=== PATIENT | female | born 1990 | race African-American/Black ===

== ENCOUNTER 2016-11-24 04:46 | Emergency (ER) | payer OTHER ==
--- NOTE | 2016-11-24 04:50 | PDOC ---
History of Present Illness - General History Source: Patient Exam Limitations: No Limitations - History of Present Illness Initial Comments: 11/24/16 05:17 The patient is a 25 year old female, with a significant past medical history of anemia and suicidal ideations, who presents to the emergency department complaining of non-radiating chest pain for 2 days. The patient describes the pain as chest tightness. She states she has been unable to sleep because of the pressure in her chest. She denies any associated diaphoresis or palpitations. The patient reports the pain is pleuritic and reproducible to palpation. She reports to episodes of nonbloody diarrhea yesterday, but denies any abdominal pain, nausea, vomiting, constipation, or changes in urination patterns. The patient reports she had an 22 days ago (with a pill), and is now SOB. The patient denies any fever, chills, cough, headache, or dizziness.The patient denies any recent travel or sick contacts. Allergies: Sulfa (Sulfonamide antibiotics) (hives), hydromorphone HCl (vomiting) Past Surgical History: None reported. 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 Non-smoker. Non drug user. <Daniella Garcia - Last Filed: 11/24/16 06:13> <Ashley Grossman - Last Filed: 11/26/16 00:54> - General Stated Complaint: CHEST PAIN Time Seen by Provider: 11/24/16 04:50 Past History <Daniella Garcia - Last Filed: 11/24/16 06:13> - Past Medical History Anemia: Yes Asthma: No Cancer: No Cardiac Disorders: No CVA: No COPD: No CHF: No Dementia: No Diabetes: No GI Disorders: No Disorders: No HTN: No Hypercholesterolemia: No Liver Disease: No Suicide Attempt (Hx): Yes Seizures: No Thyroid Disease: No - Surgical History Abdominal Surgery: No Appendectomy: No Cardiac Surgery: No Cholecystectomy: No Lung Surgery: No Neurologic Surgery: No Orthopedic Surgery: No - Immunization History Immunization Up to Date: Yes - Psycho/Social/Smoking Cessation Hx Anxiety: No Suicidal Ideation: No Smoking Status: No Smoking History: Never smoked Have you smoked in the past 12 months: No Number of Cigarettes Smoked Daily: 0 Hx Alcohol Use: Yes Drug/Substance Use Hx: No Substance Use Type: Alcohol Hx Substance Use Treatment: No <Ashley Grossman - Last Filed: 11/26/16 00:54> - Past Medical History Allergies/Adverse Reactions: Allergies Allergy/AdvReac Type Severity Reaction Status Date / Time Sulfa (Sulfonamide Allergy Severe Hives Verified 10/18/15 14:10 Antibiotics) hydromorphone HCl Allergy Vomiting Verified 10/18/15 14:10 [From Dilaudid] Home Medications: Ambulatory Orders Fluconazole [Diflucan -] 150 mg PO ONCE #3 tablet 11/24/16 Levofloxacin [Levaquin] 500 mg PO DAILY #7 tablet 11/24/16 Review of Systems - Review of Systems Able to Perform ROS?: Yes Comments:: 11/24/16 05:17 GENERAL/CONSTITUTIONAL: No fever or chills. No weakness. HEAD, EYES, EARS, NOSE AND THROAT: No change in vision. No ear pain or discharge. No sore throat. CARDIOVASCULAR: +Chest pain, +shortness of breath. RESPIRATORY: No cough, wheezing, or hemoptysis. GASTROINTESTINAL: +Diarrhea. No abdominal pain, nausea, vomiting, or constipation. GENITOURINARY: No dysuria, frequency, or change in urination. MUSCULOSKELETAL: No joint or muscle swelling or pain. No neck or back pain. SKIN: No rash NEUROLOGIC: No headache, vertigo, loss of consciousness, or change in strength/ sensation. ENDOCRINE: No increased thirst. No abnormal weight change. HEMATOLOGIC/LYMPHATIC: No anemia, easy bleeding, or history of blood clots. ALLERGIC/IMMUNOLOGIC: No hives or skin allergy. <Daniella Garcia - Last Filed: 11/24/16 06:13> *Physical Exam - Vital Signs Last Vital Signs Temp Pulse Resp BP Pulse Ox 98.1 F 73 17 127/82 100 11/24/16 04:59 11/24/16 04:59 11/24/16 04:59 11/24/16 04:59 11/24/16 04:59 - Physical Exam Comments: 11/24/16 05:18 GENERAL: Awake, alert, and fully oriented, in no acute distress HEAD: No signs of trauma EYES: PERRLA, EOMI, sclera anicteric, conjunctiva clear ENT: Auricles normal inspection, hearing grossly normal, nares patent, oropharynx clear without exudates. Moist mucosa NECK: Normal ROM, supple, no lymphadenopathy, JVD, or masses LUNGS: Breath sounds equal, clear to auscultation bilaterally. No wheezes, and no crackles. HEART: Regular rate and rhythm, normal S1 and S2, no murmurs, rubs or gallops. + Chest pain is reproducible to palpation of the midsternal region. ABDOMEN: Soft, nontender, normoactive bowel sounds. No guarding, no rebound. No masses EXTREMITIES: Normal range of motion, no edema. No clubbing or cyanosis. No cords, erythema, or tenderness NEUROLOGICAL: Cranial nerves II through XII grossly intact. Normal speech, normal gait SKIN: Warm, Dry, normal turgor, no rashes or lesions noted. <Daniella Garcia - Last Filed: 11/24/16 06:13> Heart Score/ECG Review - ECG Impressions Comment:: 11/24/16 06:13 Vent. Rate: 80 bpm IMPRESSION: Sinus rhythm with marked sinus arrhythmia. <Daniella Garcia - Last Filed: 11/24/16 06:13> - ECG Intrepretation Rhythm: Regular Rhythm - Arminto Arminto: Normal - P and WA Prominent R with upright T in V1 (true posterior KS): No Delta Wave(s) Present: No WPW: No - QRS Poor R Wave Progression: No Q Wave Present: No - ST and T Early Repolarization: No Non Specific ST-T Wave changes: No - ECG Impressions Normal ECG: Yes Non-specific ST Elevation: No Ischemic Changes: No Comment:: 11/24/16 07:25 Normal EKG; sinus arrhythmia; rate 80 bpm <Ashley Grossman - Last Filed: 11/26/16 00:54> ED Treatment Course - LABORATORY CBC & Chemistry Diagram: 11/24/16 07:38 11/24/16 07:38 <Ashley rGossman - Last Filed: 11/26/16 00:54> Medical Decision Making - Medical Decision Making 11/24/16 05:57 Pt states that she had an (with a pill) 22 days ago and she now has SOB and she is worried that it may be something bad. She has 100% O2 sat on room air and she has a normal EKG, and she has a normal BP and she has a normal Heart rate. SHe has no SOB on exam and her lung sounds are equal and good throughout. SHe has no leg swelling or edema; she is not a smoker She is taking lo-estrin control. She has no fever or chills. SHe has a normal exam. We are awaiting labs and a CXR 11/24/16 07:13 CBC and chem and flu culture are pending. CXR official result is pending. 11/24/16 07:23 Day Er doc will follow results and discharge patient. <Ashley Grossman - Last Filed: 11/26/16 00:54> *DC/Admit/Observation/Transfer - Attestations Scribe Attestion: 11/24/16 05:19 Documentation prepared by Daniella Garcia, acting as certified court/medical interpreter for Ashley Grossman MD. <Daniella Garcia - Last Filed: 11/24/16 06:13> <Ashley Grossman - Last Filed: 11/26/16 00:54> Diagnosis at time of Disposition: Pneumonia, Precordial pain - Discharge Dispostion Disposition: HOME Condition at time of disposition: Stable - Prescriptions Prescriptions: Fluconazole [Diflucan -] 150 mg PO ONCE #3 tablet Levofloxacin [Levaquin] 500 mg PO DAILY #7 tablet - Patient Instructions Printed Discharge Instructions: DI for Atypical Chest Pain Additional Instructions: You're being treated for pneumonia with Levaquin 500 mg take 1 tablet daily for 7 days. You have been given your first dose in the emergency department today so start your antibiotics tomorrow. Please follow-up with your primary care physician within one week and return to the emergency department if your symptoms persist, worsen, or new symptoms arise.
[2016-11-24 05:03] VITALS: BMI 38.4
[2016-11-24] MEDS ORDERED: IBUPROFEN 600 MG TABLET (FP) PO ONE ×2 (07:37)
--- NOTE | 2016-11-24 07:52 | PDOC ---
*Physical Exam - Vital Signs Last Vital Signs Temp Pulse Resp BP Pulse Ox 98.1 F 73 17 127/82 100 11/24/16 04:59 11/24/16 04:59 11/24/16 04:59 11/24/16 04:59 11/24/16 04:59 ED Treatment Course - LABORATORY CBC & Chemistry Diagram: 11/24/16 07:38 11/24/16 07:38 - Medications Given in the ED: ED Medications Discontinued Medications Generic Name Dose Route Start Last Admin Trade Name Emerson PRN Reason Stop Dose Admin Ibuprofen 600 mg 11/24/16 07:37 11/24/16 07:50 Motrin - PO 11/24/16 07:38 600 mg ONCE ONE Administration Progress Note - Progress Note Progress Note: The patient was endorsed to me at [address] Grant pending labs and reevaluation. The patient is a 25-year-old female status post chemical 3 weeks ago who presents to the emergency department with three-day history of intermittent left-sided chest pain described as pressure worse with inspiration. The patient complains also of shortness of breath. Upon my reevaluation the patient started to have left-sided jaw pain as well. Initial EKG was unremarkable. Her lungs are clear to auscultation bilaterally. Rental diagnosis includes but is not limited to: PE, ACS (unlikely given her age and lack of cardiac risk factors but will still rule out), pneumonia, musculoskeletal pain. I will repeat the EKG and check a d-dimer. If the d-dimer is positive will get a CT chest. Will continue to observe and reevaluate. Addendum: The d-dimer was elevated therefore a CT scan of the chest was performed. The CT scan showed no evidence of pulmonary embolism; however, there was a small lingular infiltrate and a very small left basilar filtrate. I will begin the patient on Levaquin as her influenza PCR was negative for influenza A and B. The patient is feeling improved and wants to go home. I will give her her first dose of Levaquin here in the emergency department and give a prescription for Levaquin 500 milligrams by mouth daily 7 days. I will instruct the patient to follow-up with her primary care physician within one week and to return to the emergency department if her symptoms persist, worsen, or new symptoms arise. *DC/Admit/Observation/Transfer Diagnosis at time of Disposition: Pneumonia, Precordial pain - Discharge Dispostion Disposition: HOME Condition at time of disposition: Stable Admit: No - Prescriptions Prescriptions: Levofloxacin [Levaquin] 500 mg PO DAILY #7 tablet - Patient Instructions Printed Discharge Instructions: DI for Atypical Chest Pain Additional Instructions: You're being treated for pneumonia with Levaquin 500 mg take 1 tablet daily for 7 days. You have been given your first dose in the emergency department today so start your antibiotics tomorrow. Please follow-up with your primary care physician within one week and return to the emergency department if your symptoms persist, worsen, or new symptoms arise.
[2016-11-24 07:54] LABS: BASOPHIL 0.2 % (0-2.0); EOSINOPHIL 1.3 % (0-4.5); MCH 24.9 pg (25.7-33.7); MCHC 31.7 g/dl (32.0-36.0); MEAN CELL VOLUME 78.6 fl (80-96); MEAN PLT VOLUME 7.2 fl (7.5-11.1); NEUTROPHILS 69.4 % (42.8-82.8); PLATELET COUNT 328 K/MM3 (134-434); RDW 13.7 % (11.6-15.6); WHITE BLOOD COUNT 12.6 K/mm3 (4.0-10.0)
[2016-11-24 08:18] LABS: ALBUMIN 3.4 g/dl (3.4-5.0); ANION GAP 9 (8-16); BILIRUBIN,TOTAL 0.6 mg/dL (0.2-1.0); CALCIUM 8.6 mg/dL (8.5-10.1); CO2 26 mmol/L (21-32); CREATININE 0.8 mg/dL (0.55-1.02); GLUCOSE,RANDOM 90 mg/dL (74-106); SGOT/AST 9 U/L (15-37); SGPT/ALT 26 U/L (12-78); TOT PROT 7.4 g/dl (6.4-8.2)
[2016-11-24 08:19] LABS: ALK PHOS 88 U/L (45-117)
[2016-11-24 09:19] LABS: TROPONIN I < 0.02 ng/ml (0.00-0.05)
--- NOTE | 2016-11-24 09:25 | EKG ---
Test Reason : Blood Pressure : / mmHG Vent. Rate : 080 BPM Atrial Rate : 080 BPM P-R Int : 158 ms QRS Dur : 086 ms QT Int : 372 ms P-R-T Axes : 032 028 024 degrees QTc Int : 429 ms SINUS RHYTHM WITH MARKED SINUS ARRHYTHMIA OTHERWISE NORMAL ECG WHEN COMPARED WITH ECG OF 03-OCT-2013 01:47, NONSPECIFIC T WAVE ABNORMALITY NOW EVIDENT IN INFERIOR LEADS NONSPECIFIC T WAVE ABNORMALITY NOW EVIDENT IN ANTERIOR LEADS Confirmed by VENUS SEGURA MD ([id number]) on 11/24/2016 9:25:07 AM Referred By: Confirmed By:VENUS SEGUAR MD
[2016-11-24] MEDS ORDERED: LEVOFLOXACIN 500 MG TABLET (FP) PO SCH (13:00)
[2016-11-24] MEDS ORDERED: LEVOFLOXACIN 250 MG TABLET (FP) ONE (13:26)
[2016-11-24 14:09] LABS: TROPONIN I < 0.02 ng/ml (0.00-0.05)
[2016-11-24 14:57] VITALS: BP 108/73; PULSE 78; TEMP 97.8
--- NOTE | 2016-11-25 09:40 | EKG ---
Test Reason : Blood Pressure : / mmHG Vent. Rate : 066 BPM Atrial Rate : 066 BPM P-R Int : 156 ms QRS Dur : 080 ms QT Int : 408 ms P-R-T Axes : 028 034 035 degrees QTc Int : 427 ms SINUS RHYTHM WITH MARKED SINUS ARRHYTHMIA WHEN COMPARED WITH ECG OF 24-NOV-2016 04:54, NO SIGNIFICANT CHANGE WAS FOUND Confirmed by VENUS SEGURA MD ([id number]) on 11/25/2016 9:40:16 AM Referred By: Confirmed By:VENUS SEGURA MD
== END 2016-11-24 14:58 | disposition home or self-care (01) ==
LOC: JER 04:46
DX: J18.9 Pneumonia, unspecified organism (principal); R07.2 Precordial pain
CPT/HCPCS: 36415; 71020-TC; 71275-TC; 80053; 82550; 82553; 84484; 84703; 85025; 85379; 87804; 93005; 93010; 99285-25

== ENCOUNTER 2018-10-12 19:26 | Emergency (ER) | payer OTHER ==
[2018-10-12 19:56] VITALS: BP 136/76; PULSE 85; TEMP 98.5; BMI 40.4
--- NOTE | 2018-10-12 20:08 | PDOC ---
History of Present Illness - General Chief Complaint: Psychiatric Stated Complaint: SHORTNESS OF BREATH, ANXIETY Time Seen by Provider: 10/12/18 19:59 History Source: Patient Exam Limitations: No Limitations - History of Present Illness Initial Comments: CHIEF COMPLAINT: 27 y/o female here after an episode of troubled breathing. HISTORY OF PRESENT ILLNESS: The patient's states she was getting really flustered at home and then became really warm. When she couldn't get off her tight clothing she began breathing really fast and then started hyperventilating. EMS was able to get her to slow her breathing and the symptoms resolved. He states this has happened to her in the past and she gets overwhelmed easily. She was also recently diagnosed with MS and hasn't started any medication yet. She denies LOC, head trauma, f/c, n/v/d, cough, hemoptysis , CP, abd pain. Vital signs on arrival are within normal limits. REVIEW OF SYSTEMS: GENERAL/CONSTITUTIONAL: No fever/chills. No weakness. No weight change. HEAD, EYES, EARS, NOSE AND THROAT: No change in vision. No ear pain or discharge. No sore throat. CARDIOVASCULAR: +SOB - resolved. No chest pain. RESPIRATORY: No cough, wheezing, or hemoptysis. GASTROINTESTINAL: No abd pain, nausea, vomiting, diarrhea. GENITOURINARY: No dysuria, frequency, or change in urination. MUSCULOSKELETAL: No joint or muscle swelling or pain. No neck or back pain. SKIN: No rash or easy bruising. NEUROLOGIC: No headache, vertigo, loss of consciousness, or loss of sensation. PSYCHIATRIC: No depression or anxiety. PHYSICAL EXAM: GENERAL: The patient is awake, alert, and fully oriented, in no acute distress. HEAD: Normal with no signs of trauma. ENT: Pupils equal, round and reactive to light, extraocular movements intact, sclera anicteric, conjunctiva clear. Neck supple. LUNGS: Clear to auscultation bilaterally. Normal excursion. No respiratory distress or use of accessory muscles. CV: RRR, S1/S2, no MRG. Cap refill < 2 sec. ABDOMEN: Soft, non-distended, non-tender even to deep palpation, no hepatomegaly or splenomegaly, no masses. EXTREMITIES: Normal range of motion, no edema. NEUROLOGICAL: Normal speech, normal gait. CN II-XII grossly intact. PSYCH: Normal mood, normal affect. SKIN: Warm, dry, normal turgor, no rashes or lesions noted. Past History - Past Medical History Allergies/Adverse Reactions: Allergies Allergy/AdvReac Type Severity Reaction Status Date / Time Sulfa (Sulfonamide Allergy Severe Hives Verified 10/12/18 19:56 Antibiotics) hydromorphone HCl Allergy Vomiting Verified 10/12/18 19:56 [From Dilaudid] Home Medications: Ambulatory Orders NK [No Known Home Medication] 10/12/18 Anemia: Yes Asthma: No Cancer: No Cardiac Disorders: No CVA: No COPD: No CHF: No Dementia: No Diabetes: No GI Disorders: No Disorders: No HTN: No Hypercholesterolemia: No Liver Disease: No Seizures: No Thyroid Disease: No - Surgical History Abdominal Surgery: No Appendectomy: No Cardiac Surgery: No Cholecystectomy: No GI Surgery: Yes (LEAP) Lung Surgery: No Neurologic Surgery: No Orthopedic Surgery: No - Immunization History Immunization Up to Date: Yes - Suicide/Smoking/Psychosocial Hx Smoking Status: No Smoking History: Never smoked Have you smoked in the past 12 months: No Number of Cigarettes Smoked Daily: 0 Information on smoking cessation initiated: No Hx Alcohol Use: No Drug/Substance Use Hx: No Substance Use Type: Alcohol Hx Substance Use Treatment: No *Physical Exam - Vital Signs Last Vital Signs Temp Pulse Resp BP Pulse Ox 98.5 F 85 18 136/76 99 10/12/18 19:52 10/12/18 19:52 10/12/18 19:52 10/12/18 19:52 10/12/18 19:52 Moderate Sedation - Procedure Monitoring Vital Signs: Procedure Monitoring Vital Signs Temperature 98.5 F 10/12/18 19:52 Pulse Rate 85 10/12/18 19:52 Respiratory Rate 18 10/12/18 19:52 Blood Pressure 136/76 10/12/18 19:52 O2 Sat by Pulse Oximetry (%) 99 10/12/18 19:52 Medical Decision Making - Medical Decision Making A/P: 27 y/o female with an episode of hyperventilating at home secondary to anxiety. The patient states her symptoms are completely resolved. Suggested benadryl and the patient states she will take at home. The patient verbalizes understanding of all instructions, has no further questions and is awaiting discharge. *DC/Admit/Observation/Transfer Diagnosis at time of Disposition: Anxiety hyperventilation - Discharge Dispostion Disposition: HOME Condition at time of disposition: Improved - Referrals - Patient Instructions Printed Discharge Instructions: DI for Anxiety -- Adult, DI for Hyperventilation Additional Instructions: Discharge Instructions: -If symptoms recur, try to take slow deep breaths -You can take benadryl if you start to feel overwhelmed -Please follow up with your doctor tomorrow -Return to the ER with any worsening or concerning symptoms - Post Discharge Activity
== END 2018-10-12 20:38 | disposition home or self-care (01) ==
LOC: JERFT 19:26
DX: R06.4 Hyperventilation (principal); F41.9 Anxiety disorder, unspecified; D64.9 Anemia, unspecified
CPT/HCPCS: 99281-25

== ENCOUNTER 2020-07-19 07:00 | Inpatient (IN) | payer OTHER ==
--- OUTSIDE RECORDS SUMMARY | 2020-07-19 07:30 | XMS ---
:1990 Author Organization [facility] Support Name Relationship Address Phone [facility] Unavailable [address] [place] [address] FRAN PEACE [address] [place] [address] CES[employer] MOTHER [address] [phone] [place] [address] Re-disclosure Warning The records that you are about to access may contain information from federally- assisted alcohol or drug abuse programs. If such information is present, then the following federally mandated warning applies: This information has been disclosed to you from records protected by federal confidentiality rules (42 CFR part 2). The federal rules prohibit you from making any further disclosure of this information unless further disclosure is expressly permitted by the written consent of the person to whom it pertains or as otherwise permitted by 42 CFR part 2. A general authorization for the release of medical or other information is NOT sufficient for this purpose. The Federal rules restrict any use of the information to criminally investigate or prosecute any alcohol or drug abuse patient.The records that you are about to access may contain highly sensitive health information, the redisclosure of which is protected by Article 27-F of the [facility] Public Health law. If you continue you may haveaccess to information: Regarding HIV / AIDS; Provided by facilities licensed or operated by the [facility] Office of Mental Health; or Provided by the [facility] Office for People With Developmental Disabilities. If such information is present, then the following [facility] mandated warning applies: This information has been disclosed to you from confidential records which are protected by state law. State law prohibits you from making any further disclosure of this information without the specific written consent of the person to whom it pertains, or as otherwise permitted by law. Any unauthorized further disclosure in violation of state law may result in a fine or longterm sentence or both. A general authorization for the release of medical or other information is NOT sufficient authorization for further disclosure. Insurance Providers Payer name Policy type Policy ID Covered Covered constitution party's Policy P brittni / Coverage constitution party ID relationship to [employer] ormation type su[employer] [facility] [id number] - [id number] [facility] [id number]
[2020-07-19] MEDS ORDERED: DEXTROSE 5%-LACTATED RINGERS 1,000 ML IV SCH (09:00)
--- NOTE | 2020-07-19 09:04 | HP ---
Past Medical History - Primary Care Physician PCP:: Brian Mo - Admission Chief Complaint: 29yo P0 with at EGA 40w2d admitted for labor indx. History of Present Illness: complicated by: Post term at EGA 40w2d Morbid obesity Maternal MS Depression/anxiety Rheumatoid arthritis History Source: Patient, Medical Record Limitations to Obtaining History: No Limitations - Past Medical History OPERATIONS TRAINER: Yes: Multiple Sclerosis Cardiovascular: No: AFIB, Aneurysm, Aortic Insufficiency, Aortic Stenosis, CAD, CHF, Deep Vein Thrombosis, HTN, Hyperlipdemia, NE, Mitral Insufficiency, Mitral Stenosis, Murmur, Pulmonary Hypertension, Other Pulmonary: No: Asthma, Bronchitis, Cancer, COPD, O2 Dependent, Pneumonia, Previously Intubated, Pulmonary Embolus, Pulmonary Fibrosis, Sleep Apnea, Other Hepatobiliary: No: Cirrhosis, Cholelithiasis, Cholecystitis, Choledocholithias is, Hepatitis A, Hepatitis B, Hepatitis C, Other Renal/: No: Renal Failure, Renal Inusuff, BPH, Cancer, Hematuria, Hemodialysis, Neurogenic Bladder, Renal Calculi, UTI, Other Reproductive: Yes: Fibroids ...: 3 ...Para: 0 ...Term: 0 ...: 0 ...Spon : 1 ...Induced : 1 ...Living Children: 0 ...Multiple Gestation: 0 ... Weeks Gestation by Dates: 40.2 Heme/Onc: No: Anemia, B12 Deficiency, Bleeding Disorder, Cancer, Current Chemotherapy, Current Radiation Therapy, Hemochromatosis, Hypercoaguable State, Myeloproliferative Synd, Sickle Cell Disease, Sickle Cell Trait, Thrombocytopenia, Other Infectious Disease: No: AIDS, C-Diff, Herpes Zoster, HIV, MRSA, STD's, Tuberculosis, VREF, Other Psych: Yes: Anxiety, Depression Musculoskeletal: No: Bursitis, Chronic low back pain, Hemiparesis, Hemiplegia, Osteoarthritis, Paraplegia, Other Rheumatology: No: Fibromyalgia, Gout, Lupus, Rheumatoid Arthritis, Sarcoidosis, Vasculitis, Other ENT: No: Allergic Rhinitis, Sinusitis, Other Endocrine: No: Selwyn's Disease, Kumar's Disease, Diabetes Insipidus, Diabetes Mellitus, Hyperparathyroidism, Hyperthyroidism, Hypothyroidism, Osteopenia, SIADH, Other Dermatology: No: Basal Cell, Cellulitis, Eczema, Melanoma, Psoriasis, Squamous Cell, Other - Past Surgical History Hx Myomectomy: No Hx Transabdominal Cerclage: No Additional Surgical History: Rigt oophorectomy, LEEP - Smoking History Smoking history: Never smoked Have you smoked in the past 12 months: No Aproximately how many cigarettes per day: 0 - Alcohol/Substance Use Hx Alcohol Use: No History of Substance Use: reports: None - Social History Usual Living Arrangement: Yes: With Spouse Do you think of yourself as: Straight/Heterosexual ADL: Independent History of Recent Travel: No Home Medications - Allergies Allergies/Adverse Reactions: Allergies Allergy/AdvReac Type Severity Reaction Status Date / Time Sulfa (Sulfonamide Allergy Severe Hives Verified 07/19/20 07:57 Antibiotics) hydromorphone HCl Allergy Rash Verified 07/19/20 07:57 [From Dilaudid] - Home Medications Home Medications: Ambulatory Orders No122/Iron/Folic Acid [ Multi Tablet] 1 each PO DAILY 07/19/20 Family Medical History Family Hx Diabetes: Grandmother (paternal), Grandfather (maternal), Father Review of Systems - Review of Systems Constitutional: reports: No Symptoms Eyes: reports: No Symptoms HENT: reports: No Symptoms Neck: reports: No Symptoms Cardiovascular: reports: No Symptoms Respiratory: reports: No Symptoms Gastrointestinal: reports: No Symptoms Genitourinary: reports: No Symptoms Breasts: reports: No Symptoms Reported Musculoskeletal: reports: No Symptoms Integumentary: reports: No Symptoms Neurological: reports: No Symptoms Endocrine: reports: No Symptoms Hematology/Lymphatic: reports: No Symptoms Psychiatric: reports: No Symptoms Pain Intensity: 0 Physical Exam - Maternity Vital Signs: Vital Signs Temperature 97.8 F 07/19/20 07:38 Pulse Rate 87 07/19/20 07:38 Respiratory Rate 18 07/19/20 07:38 Blood Pressure 119/72 07/19/20 07:38 O2 Sat by Pulse Oximetry (%) 97 07/19/20 07:38 Constitutional: Yes: Well Nourished, No Distress, Calm Eyes: Yes: WNL, Conjunctiva Clear, EOM Intact HENT: Yes: WNL, Atraumatic, Normocephalic Neck: Yes: WNL, Supple, Trachea Midline Cardiovascular: Yes: WNL, Regular Rate and Rhythm Lungs: Clear to auscultation, Normal air movement Breast(s): Yes: WNL - Abdominal Exam/OB Fundal Height: 42 Number of Fetuses: Single Presentation: Vertex Contractions: No Monitor Mode: External Heart Rate (range): 140 Heart Rate Location: Midline Category: I Accelerations: Non-Uniform Decelerations: None - Vaginal Exam/OB Vaginal Bleeding: No Speculum Exam: No Dilatation (cm): 0 Effacement (%): 0 Amniotic Membrane Status: Intact Presentation: Vertex/Position Station: -4 - Physical Exam Musculoskeletal: Yes: WNL Extremities: Yes: WNL Edema: Yes Edema: LLE: Trace, RLE: Trace Integumentary: Yes: WNL Deep Tendon Reflex Grade: Normal +2 ...Motor Strength: WNL Psychiatric: Yes: WNL, Alert, Oriented Hemorrhage Risk Assessment - Risk Factors Medium Risk Factors: Yes: Obesity (BMI >40) High Risk Factors: Yes: None Risk Score: 1 Risk Level: Medium Risk Imaging - Results Ultrasound: Report Reviewed Assessment/Plan 29yo P0 with at EGA 40w2d admitted for labor indx. Pt is not in labor. Pt is not in labor. Fetus with Category I tracing. Adequate gynecoid pelvimetry on exam. We had long discussion re: risks, benefits, and alternatives of labor induction. I explained the options of expectant management awaiting spontaneous labor, induction of labor, and elective section. The risks of uterine tachysystole, distress, uterine rupture, need for emergency C/S, hemorrhage, infection, scarring, etc. were discussed. We also discussed the risks of meconium aspiration, shoulder dystocia, and anesthesia options. The pt requested to proceed with induction. We discussed the alternative methods of induction with Cervidil, Cytotec, Folley ballon, and pitocin. The pt prefers Cervidil followed by pitocin, if needed.
[2020-07-19] MEDS ORDERED: DINOPROSTONE 10 MG VAGINAL SUPPOSITORY VG ONE (09:15)
[2020-07-19 09:36] LABS: BASO % 0.6 % (0-2.0); EOS % 0.6 % (0-4.5); HEMATOCRIT 36.1 % (32.4-45.2); HEMOGLOBIN 11.3 GM/dL (10.7-15.3); LYMPH % 20.4 % (8-40); MCH 24.3 pg (25.7-33.7); MCHC 31.4 g/dl (32.0-36.0); MEAN CELL VOLUME 77.5 fl (80-96); MEAN PLT VOLUME 7.2 fl (7.5-11.1); MONO % 8.1 % (3.8-10.2); NEUT % 70.3 % (42.8-82.8); PLATELET COUNT 334 K/MM3 (134-434); RBC 4.66 M/mm3 (3.60-5.2); WHITE BLOOD COUNT 12.1 K/mm3 (4.0-10.0)
[2020-07-19 09:44] LABS: INR 0.95 (0.83-1.09); PROTHROMBIN TIME (PATIENT) 11.2 SEC (9.7-13.0)
[2020-07-19 09:47] LABS: ACTIVATED PTT 23.6 SECONDS (25.2-36.5)
[2020-07-19 10:06] LABS: BLOOD UREA NITROGEN 7.8 mg/dL (7-18); CALCIUM 8.4 mg/dL (8.5-10.1); CREATININE 0.6 mg/dL (0.55-1.3); POTASSIUM 3.6 mmol/L (3.5-5.1)
[2020-07-19 10:21] VITALS: BMI 43.5
--- NOTE | 2020-07-19 21:59 | PN ---
Ante-Partal Exam - Subjective Subjective: Cervidil was removed at 9pm and VE was done. Vital Signs: Vital Signs Temperature 97.6 F 07/19/20 16:00 Pulse Rate 98 H 07/19/20 19:00 Respiratory Rate 18 07/19/20 19:00 Blood Pressure 107/56 L 07/19/20 19:00 O2 Sat by Pulse Oximetry (%) 99 07/19/20 13:00 Bleeding: No Headache: No Visual changes: No Right upper quadrant pain: No Pain (scale 1-10): 4 - Contractions Contractions: Yes Regularity: Irregular Intensity: Mild Monitor Mode: External - Exam during Labor Heart Rate: 140 Variability: Moderate Heart Rate Location: Midline Category: I Monitor Accelerations: Present Monitor Decelerations: None Exam: Vaginal Dilatation (cm): 0 Effacement (%): 0 Amniotic Membrane Status: Intact Presentation: Vertex Station: -4 Remarks: Gynecoid pelvimetry. No cervical change after cervidil. - Intrapartum Hemorrhage Risk Medium Risk Factors: None High Risk Factors: None Risk Score: 0 Risk Level: Low Risk - Assessment/Plan Assessment/Plan: P0 with at 40w2d admitted for labor indx. Pt is now s/p Cervidil. No cervical change. Plan trial of pitocin infusion. Risks and benefits of pitocin and labor indx were reviewed.
--- NOTE | 2020-07-19 23:29 | PN ---
Ante-Partal Exam - Subjective Subjective: No complaints Vital Signs: Vital Signs Temperature 98.2 F 07/19/20 22:00 Pulse Rate 81 07/19/20 22:00 Respiratory Rate 18 07/19/20 22:00 Blood Pressure 100/68 07/19/20 22:00 O2 Sat by Pulse Oximetry (%) 99 07/19/20 13:00 Bleeding: No Headache: No Visual changes: No Right upper quadrant pain: No Pain (scale 1-10): 1 - Contractions Contractions: Yes Regularity: Irregular Intensity: Mild Monitor Mode: External - Exam during Labor Heart Rate: 140 Variability: Moderate Heart Rate Location: Midline Category: I Monitor Accelerations: Present Monitor Decelerations: None Presentation: Vertex - Intrapartum Hemorrhage Risk Medium Risk Factors: None High Risk Factors: None Risk Score: 0 Risk Level: Low Risk - Assessment/Plan Assessment/Plan: Not in labor Fetus with Category I tracing Start pitocin
[2020-07-19] MEDS ORDERED: OXYTOCIN 30 UNITS in 0.9% NS 30 UNIT/500 ML INFUS.BAG IVPB SCH (23:30)
[2020-07-20] MEDS ORDERED: BUTORPHANOL TARTRATE 2 MG/ML VIAL ONE (04:26)
[2020-07-20] MEDS ORDERED: PROMETHAZINE HCL 25 MG/1 ML VIAL ONE (04:27)
[2020-07-20] MEDS ORDERED: BUTORPHANOL TARTRATE 1 MG/ML VIAL IVPB ONE (06:00)
[2020-07-20] MEDS ORDERED: BUTORPHANOL TARTRATE 2 MG/ML VIAL IVPB ONE (06:00)
[2020-07-20] MEDS ORDERED: PROMETHAZINE HCL 25 MG/1 ML VIAL IVPB ONE (06:30)
--- NOTE | 2020-07-20 07:19 | PN ---
Ante-Partal Exam - Subjective Subjective: Pt with contractions. s/p SROM at 4:30am. She is on pitocin now. s/p Stadol/p henergan Vital Signs: Vital Signs Temperature 98.5 F 07/20/20 06:00 Pulse Rate 96 H 07/20/20 06:00 Respiratory Rate 07/20/20 06:00 Blood Pressure 127/72 07/20/20 06:00 O2 Sat by Pulse Oximetry (%) 99 07/19/20 13:00 Bleeding: No Headache: No Visual changes: No Right upper quadrant pain: No Pain (scale 1-10): 6 - Contractions Contractions: Yes Regularity: Regular Intensity: Mild/Mod Monitor Mode: External - Exam during Labor Heart Rate: 140 Variability: Moderate Heart Rate Location: Midline Category: I Monitor Accelerations: Present Monitor Decelerations: None Exam: Vaginal Amniotic Fluid: Clear - Intrapartum Hemorrhage Risk Medium Risk Factors: None High Risk Factors: None Risk Score: 0 Risk Level: Low Risk - Assessment/Plan Assessment/Plan: Postterm with labor induction Fetus with category I tracing Plan to continue labor indx
[2020-07-20 09:10] LABS: POC NITRAZINE POS
[2020-07-20] MEDS ORDERED: FENTANYL/BUPIVACAINE/NS/PF - PCEA - 50 ML DISP.SYRIN EP ONE ×2 (10:37→14:49)
[2020-07-20] MEDS ORDERED: BUPIVACAINE HCL/PF 0.25% (2.5MG/ML) 10 ML VIAL ONE (10:40)
[2020-07-20] MEDS: FENTANYL/BUPIVACAINE/NS/PF - PCEA - 50 ML DISP.SYRIN EP SCH (11:00)
[2020-07-20] MEDS ORDERED: NALOXONE HCL 0.4 MG/ML VIAL IVPUSH PRN (11:08)
[2020-07-20] MEDS ORDERED: PCA PUMP NR ONE (12:00)
--- NOTE | 2020-07-20 12:02 | PN ---
Ante-Partal Exam - Subjective Subjective: Patient reports pain with contractions Vital Signs: Vital Signs Temperature 98.0 F 07/20/20 09:00 Pulse Rate 87 07/20/20 09:00 Respiratory Rate 20 07/20/20 09:00 Blood Pressure 116/78 07/20/20 09:00 O2 Sat by Pulse Oximetry (%) 99 07/19/20 13:00 Bleeding: No Headache: No Visual changes: No Right upper quadrant pain: No - Contractions Contractions: Yes Regularity: Regular Intensity: Mod/Strong Monitor Mode: External - Exam during Labor Heart Rate: 130 Variability: Moderate Category: I Monitor Accelerations: Present Monitor Decelerations: None Exam: Vaginal Dilatation (cm): 3 Effacement (%): 90 Amniotic Membrane Status: Ruptured Station: -3 - Intrapartum Hemorrhage Risk Medium Risk Factors: None High Risk Factors: None Risk Score: 0 Risk Level: Low Risk - Assessment/Plan Assessment/Plan: 29 yo induction of labor 1. Good cervical change continue pitocin per protocol 2. GBS neg 3. Category I FHT 4. Desires epidural, anesthesia notified
--- NOTE | 2020-07-20 13:38 | PN ---
Ante-Partal Exam - Subjective Subjective: Patient comfortable s/p epidural Vital Signs: Vital Signs Temperature 98.2 F 07/20/20 12:15 Pulse Rate 70 07/20/20 12:30 Respiratory Rate 18 07/20/20 12:30 Blood Pressure 110/65 07/20/20 12:15 O2 Sat by Pulse Oximetry (%) 97 07/20/20 12:30 Bleeding: No Headache: No Visual changes: No Right upper quadrant pain: No - Contractions Contractions: Yes Regularity: Regular Intensity: Unaware Monitor Mode: External - Exam during Labor Heart Rate: 130 Variability: Moderate Category: I Monitor Accelerations: Present Monitor Decelerations: None Exam: Vaginal Dilatation (cm): 5 Effacement (%): 100 Amniotic Membrane Status: Ruptured Presentation: Vertex Station: -3 - Intrapartum Hemorrhage Risk Medium Risk Factors: None High Risk Factors: None Risk Score: 0 Risk Level: Low Risk - Assessment/Plan Assessment/Plan: 29 yo active labor 1. pain well controlled with epidural Will continue pitocin 2. GBS neg 3. Will continue expectant management
--- NOTE | 2020-07-20 15:21 | PN ---
Progress Note (short form) - Note Progress Note: Late entry note for 14:30 Called to patient bedside for recurrent variable decelerations to FHT 70s /80s, spontaneous recovery to baseline with moderate varibility. Pitocin shut off, patient given O2 via facemask. Cervix examined /-3 Patient placed on L lateral position FHT returned to baseline 140s md phylicia + accels, no additional decels Will pause pitocin for now Plan to restart if patient continues with category I FHT Will monitor
--- NOTE | 2020-07-20 16:35 | PN ---
Ante-Partal Exam - Subjective Vital Signs: Vital Signs Temperature 97.9 F 07/20/20 16:00 Pulse Rate 100 H 07/20/20 15:45 Respiratory Rate 18 07/20/20 15:45 Blood Pressure 88/52 L 07/20/20 15:15 O2 Sat by Pulse Oximetry (%) 100 07/20/20 15:45
--- NOTE | 2020-07-20 16:42 | PN ---
Ante-Partal Exam - Subjective Subjective: Patient comfortable s/p epidural Vital Signs: Vital Signs Temperature 97.9 F 07/20/20 16:00 Pulse Rate 100 H 07/20/20 15:45 Respiratory Rate 18 07/20/20 15:45 Blood Pressure 88/52 L 07/20/20 15:15 O2 Sat by Pulse Oximetry (%) 100 07/20/20 15:45 Bleeding: No Headache: No Visual changes: No Right upper quadrant pain: No - Contractions Contractions: Yes Regularity: Regular - Exam during Labor Heart Rate: 140 Variability: Moderate Category: I Monitor Accelerations: Present Monitor Decelerations: None Exam: Vaginal Dilatation (cm): 7 Effacement (%): 100 Amniotic Membrane Status: Ruptured Station: -3 - Intrapartum Hemorrhage Risk Medium Risk Factors: None High Risk Factors: None Risk Score: 0 Risk Level: Low Risk - Assessment/Plan Assessment/Plan: 29 yo active labor 1. Unchanged vaginal exam Discussed possibility of delivery Patient refuses at this time Will continue pitocin per protocol 2. GBS negative 3. Pain well controlled with epidural 4. Will reassess in 1 hour
[2020-07-20] MEDS ORDERED: LIDO 2%/EPI 1:200000 PRESRVFRE (20 ML SDVIAL) ONE (18:37)
[2020-07-20] MEDS ORDERED: PHENYLEPHRINE HCL 10 MG/1 ML SINGLE DOSE VIAL ONE (18:39)
[2020-07-20] MEDS ORDERED: ONDANSETRON 4 MG/2 ML VIAL IVPUSH PRN (19:58)
[2020-07-20] MEDS ORDERED: IBUPROFEN 600 MG TABLET (FP) PO PRN (19:58)
--- NOTE | 2020-07-20 20:19 | PN ---
Progress Note (short form) - Note Progress Note: Late entry Patient examined at 1745 - found to be unchanged exam - discussed failure to progress Discussed delivery with patient Discussed risks including but not limited to infection, bleeding requiring transfusion and damage to surrounding organs such as the bowel or bladder. Discussed risk of injury to . Discussed risk of wound infection and separation. Discussed need for planning of future children and possibility of abnormal placentation. All questions answered. Patient expressed understanding. Nursing and OR staff notified. Will proceed to OR
[2020-07-20] MEDS ORDERED: ceFAZolin SODIUM 1 GM VIAL ONE ×2 (20:31)
[2020-07-20] MEDS ORDERED: OXYTOCIN 10 UNITS/ML VIAL ONE ×4 (20:31)
[2020-07-20] MEDS ORDERED: SENNOSIDES/DOCUSATE COMBO (SENNA PLUS) TABLET (UD) PO PRN (20:35)
[2020-07-20] MEDS ORDERED: oxyCODONE HCL 5 MG TABLET PO PRN (20:35)
[2020-07-20] MEDS ORDERED: METHYLERGONOVINE MALEATE 0.2 MG/1 ML AMP IM PRN (20:35)
[2020-07-20] MEDS ORDERED: BENZOCAINE 28 GM HEMORRHOIDAL OINTMENT TP PRN (20:35)
[2020-07-20] MEDS ORDERED: WITCH HAZEL 50% (TUCKS) 40 PAD/JAR PAD TP PRN (20:35)
[2020-07-20] MEDS ORDERED: BENZOCAINE 20% 57 GM BOTTLE TP PRN (20:35)
--- NOTE | 2020-07-20 20:35 | PN ---
"Delivery - Delivery Section: Primary EBL (cc): 800 Delivery, Single - [place] Feeding Plan Initial Plan: Exclusive throughout hospitalization Remarks - Remarks Remarks: Surgeon: MD Mesfin | Assist: MD Chepe | Anesthesia: MD Jp EBL: 800 | UOP:500 | IVF 1300 Findings: female infant, ROT; 8,9; weight 6-7; 19 inches; absent right ovary, normal left ovary, normal tubes bilaterally Dictation: [id number]"
[2020-07-20] MEDS ORDERED: OXYTOCIN 20 UNITS in 0.9% NS 20 UNIT/1,000 ML INFUS.BAG IV SCH (20:45)
[2020-07-20] MEDS ORDERED: CITRIC ACID/SODIUM CITRATE 30 ML UNIT-DOSE CUP PO ONE (20:45)
[2020-07-20] MEDS ORDERED: OXYTOCIN 20 UNITS in 0.9% NS 20 UNIT/1,000 ML INFUS.BAG IV ONE (22:05)
[2020-07-20] MEDS: IBUPROFEN 800 MG/8 ML IJ IVPB PRN (22:26)
--- NOTE | 2020-07-21 00:06 | PN ---
Post Progress Note - Subjective Subjective: Patient without acute complaints. Tolerating clears, without nausea or vomiting No voiding, sifuentes in place draining clear fluid No ambulation or flatus yet. Denies fevers or chills. Pain well controlled. Baby at bedside, Type of Delivery: Primary C/S Vital Signs: Vital Signs Temperature 98.6 F 07/20/20 22:45 Pulse Rate 76 07/20/20 22:45 Respiratory Rate 18 07/20/20 22:45 Blood Pressure 103/70 07/20/20 22:45 O2 Sat by Pulse Oximetry (%) 98 07/20/20 22:45 Breast Exam: Yes: Soft Uterus: Yes: Fundus Firm, Fundus @ umbilicus Incision: Yes: Dressing dry and intact Abdomen/GI: Yes: Abdomen soft, Tender (incisional), Passing flatus, Tolerating PO. No: Abdominal Distention Lochia: Yes: Rubra Lochia, amount: Small Extremities: Yes: Calves non-tender, Edema (trace) - Labs Labs: CBC WBC 12.1 K/mm3 (4.0-10.0) H 07/19/20 09:30 RBC 4.66 M/mm3 (3.60-5.2) 07/19/20 09:30 Hgb 11.3 GM/dL (10.7-15.3) 07/19/20 09:30 Hct 36.1 % (32.4-45.2) 07/19/20 09:30 MCV 77.5 fl (80-96) L 07/19/20 09:30 MCH 24.3 pg (25.7-33.7) L 07/19/20 09:30 MCHC 31.4 g/dl (32.0-36.0) L 07/19/20 09:30 RDW 15.0 % (11.6-15.6) 07/19/20 09:30 Plt Count 334 K/MM3 (134-434) 07/19/20 09:30 MPV 7.2 fl (7.5-11.1) L 07/19/20 09:30 Absolute Neuts (auto) 8.5 K/mm3 (1.5-8.0) H 07/19/20 09:30 Neutrophils % 70.3 % (42.8-82.8) 07/19/20 09:30 Lymphocytes % 20.4 % (8-40) 07/19/20 09:30 Monocytes % 8.1 % (3.8-10.2) 07/19/20 09:30 Eosinophils % 0.6 % (0-4.5) 07/19/20 09:30 Basophils % 0.6 % (0-2.0) 07/19/20 09:30 Nucleated RBC % 0 % (0-0) 07/19/20 09:30 Assessment/Plan 29 yo POD # 1 s/p primary CD, afebrile, vital signs stable, doing well 1. Continue routine postoperative care. 2. AM CBC with mild anemia 3. Rh positive status, no rhogam indicated. 4. Encourage ambulation and incentive spirometer use 5. Continue oral pain medication 6. Anticipate discharge home postoperative day #3 or #4
[2020-07-21 07:51] LABS: BASO % 0.2 % (0-2.0); EOS % 0.4 % (0-4.5); HEMATOCRIT 29.2 % (32.4-45.2); LYMPH % 18.2 % (8-40); MCH 24.3 pg (25.7-33.7); MEAN CELL VOLUME 78.5 fl (80-96); MEAN PLT VOLUME 7.6 fl (7.5-11.1); MONO % 7.6 % (3.8-10.2); NEUT % 73.6 % (42.8-82.8); PLATELET COUNT 269 K/MM3 (134-434); RBC 3.72 M/mm3 (3.60-5.2); RDW 15.2 % (11.6-15.6)
[2020-07-21] MEDS: IBUPROFEN 800 MG/8 ML IJ IVPB PRN (08:06)
--- NOTE | 2020-07-21 08:34 | PN ---
Progress Note (short form) - Note Progress Note: Anesthesia postop note 29 y/o F s/p spinal anesthesia/duramorph for section POD#1, vss, aaox3, pain well controlled, sensory motor intact distally No anesthesia complications.
[2020-07-21] MEDS: PRENATAL VITAMINS W/ FOLIC ACID TABLET (FP) PO SCH (09:37)
[2020-07-21] MEDS: FENTANYL/BUPIVACAINE/NS/PF - PCEA - 50 ML DISP.SYRIN EP SCH (11:39)
--- NOTE | 2020-07-21 16:50 | OP ---
DATE OF OPERATION: 07/20/2020 PREOPERATIVE DIAGNOSIS: Failure to progress, failed induction of labor . POSTOPERATIVE DIAGNOSIS: Failure to progress, failed induction of labor . SURGEON: Tonie Toure MD. SSIS SSRS DEVELOPER: Brian Mo MD. ANESTHESIOLOGIST: Ricardo Trammell MD. ESTIMATED BLOOD LOSS: 800. URINE OUTPUT: 500. INTRAVENOUS FLUIDS GIVEN: 1300. FINDINGS: Female infant ROT position, Apgars 8 and 9. Weight 6 pounds 7 ounces, 19 inches. Absent right ovary, normal left ovary . Normal tubes bilaterally. INDICATION: Patient is a 29-year-old who was admitted for induction of labor. She progressed to 7 cm dilated and did not progress . After approximately 3 hours at the same exam, she was counseled regarding delivery. The risks, benefits, alternatives, and complications to procedure including infection, bleeding, damage to surrounding organs, risk of wound infection and separation, risk of hemorrhage requiring blood transfusion. Also reviewed risk of abnormal placentation in future . She expressed understanding, was brought to the operating room. DESCRIPTION OF PROCEDURE: The patient was prepped and draped in the normal sterile fashion, placed in dorsal supine position with a leftward tilt. Approximately 11-cm skin incision was made with the knife and carried down to the underlying rectus fascia using Bovie electrocautery. Fascia was nicked in the midline, extended laterally using Cohn scissors. Inferior portion of the fascial incision was tented up using Garry clamps, dissected off the underlying rectus muscle using Cohn scissors. The superior portion of the facial incision was tented up using Garry clamps, dissected off the underlying rectus muscle using Cohn scissors. Diastasis recti was noted. The peritoneum was entered sharply. Vesicouterine peritoneum was identified. A large vessel was noted midline at the lower uterine segment. This was isolated and clamped using 2-0 plain gut. The uterine incision was made with a knife and extended laterally using bandage scissors. The infant's head was found to be in ROT position and delivered followed by shoulders and body without difficulty. Cord was clamped and cut. Baby was handed to waiting NICU staff. The placenta was delivered. The uterus was cleared of all clots and debris. The uterus was closed using 0 Biosyn in running layers, 2nd layer was imbricated layer. The vesicouterine peritoneum was reapproximated using 0 Biosyn in a running layer. Gutters were cleared of all clots and debris. Normal bilateral fallopian tubes were noted. Absent right ovary, normal appearance left ovary. The peritoneum was then closed using 2-0 Biosyn in running fashion The rectus muscles were reapproximated using 0 Biosyn in an interrupted fashion. The fascia was closed using 0 Vicryl in running fashion. Subcutaneous fat was closed using 2-0 plain gut in a running fashion. Skin was reapproximated using 4-0 Monocryl. Patient tolerated procedure well. Estimated blood loss was 300 mL. Patient was brought to recovery room in stable condition. Mandi [id number] MTDD
[2020-07-21] MEDS: ACETAMINOPHEN 325 MG TABLET (FP) PO PRN (18:12)
[2020-07-21] MEDS: SIMETHICONE 80 MG TAB.CHEW (FP) PO PRN (18:12)
[2020-07-21] MEDS: IBUPROFEN 600 MG TABLET (FP) PO PRN (18:12)
[2020-07-21] MEDS ORDERED: BISACODYL 10 MG SUPP.RECT RC PRN (20:35)
[2020-07-22] MEDS: SIMETHICONE 80 MG TAB.CHEW (FP) PO PRN ×2 (05:48→11:17)
[2020-07-22] MEDS: IBUPROFEN 600 MG TABLET (FP) PO PRN ×4 (05:48→18:20)
[2020-07-22] MEDS: oxyCODONE HCL 5 MG TABLET PO PRN ×2 (05:49→15:19)
--- NOTE | 2020-07-22 06:28 | DS ---
Physical Exam-[employer] Vital Signs: Vital Signs Temperature 97.9 F 07/21/20 22:00 Pulse Rate 104 H 07/21/20 22:00 Respiratory Rate 18 07/21/20 22:00 Blood Pressure 109/64 07/21/20 22:00 O2 Sat by Pulse Oximetry (%) 98 07/21/20 22:00 Constitutional: Yes: Well Nourished, No Distress, Calm Eyes: Yes: WNL, Conjunctiva Clear, EOM Intact HENT: Yes: WNL, Atraumatic, Normocephalic Neck: Yes: WNL, Supple, Trachea Midline Cardiovascular: Yes: WNL, Regular Rate and Rhythm Respiratory: Yes: WNL, Regular, CTA Bilaterally Gastrointestinal: Yes: WNL ...Rectal Exam: Yes: WNL Renal/: Yes: WNL ....Post : Yes: Uterus firm, Uterus non-tender, Slight lochia rubra Breast(s): Yes: WNL Musculoskeletal: Yes: WNL Extremities: Yes: WNL Edema: LLE: Trace, RLE: Trace Integumentary: Yes: WNL Wound/Incision: Yes: Clean/Dry, Well Approximated, Sutures Intact Neurological: Yes: WNL, Alert, Oriented ...Motor Strength: WNL Psychiatric: Yes: WNL, Alert, Oriented Labs: CBC, BMP 07/21/20 06:55 07/19/20 09:30 Delivery - Delivery Section: Primary, Low Flap Transverse Type of Anesthesia: Epidural Episiotomy/Laceration: None EBL (cc): 800 Delivery, Single - Stages of Labor Date 1st Stage Initiatied: 07/20/20 Time 1st Stage Initiated: 04:30 Date of Delivery: 07/20/20 Time of Delivery: 19:15 Time Placenta Delivered: 19:16 Placenta: Yes: Expressed - Condition of Patient Scheduling Manager/Rig Builder Present: Yes Name: Zuleika Soares Gender: Female Weight: 6 lb 7 oz Position: Right, OT Total Hours ROM (Hrs/Mins): 14 HOURS/ 45 MINUTES - 1 Minute Total Score: 8 5 Minutes Total Score: 9 - Feeding Plan Initial Plan: Exclusive throughout hospitalization Discharge Summary Problems reviewed: Yes Reason For Visit: INDUCTION OF LABOR Current Active Problems delivery delivered (Acute) Multiple sclerosis (Acute) Obesity affecting (Acute) Rheumatoid arthritis (Acute) Procedures: Principal: primary LST c/s Hospital Course: no complication Plan of Treatment: follow up office 1 week Condition: Good - Instructions Diet, Activity, Other Instructions: Follow up in 1-2 wks for incision check Physical activity Resume your normal everyday activity as tolerated no heavy lifting or exercise until seen by your surgeon. You may walk unlimited josephine of and climb stairs. You may resume driving the car when you feel safe and comfortable behind the wheel. No sexual activity as instructed. Wound care If you have a bandage, leave it on, and keep dry for 48-72 hours. After that time discard the outer bandage. If they are tapes on the skin under the out of bandage leave them in place. They will peel off in the next 7 to 10 days. Do Not Peel them off. You may shower the day after surgery. If there are tapes present on the skin, you may shower over them. Diet There are no dietary restrictions. Eat healthy, high-fiber foods. Drink 6 to 8 glasses of liquid each day. This will assist in keeping your bowels are regular. Pain management You may take Tylenol or acetaminophen or Ibuprofen (for example, Motrin, Advil etc.) for mild pain. Any prescription medication is ordered should be taken as prescribed for moderate to severe pain. Call MD for any of the following: Severe pain not relieved by medication Fever of 101 or higher Excessive bleeding or drainage on dressing Inability to urinate Disposition: HOME - Home Medications Comprehensive Discharge Medication List: Ambulatory Orders No122/Iron/Folic Acid [ Multi Tablet] 1 each PO DAILY 07/19/20 Ibuprofen [Motrin -] 600 mg PO QID #28 tablet 07/22/20
[2020-07-22] MEDS: PRENATAL VITAMINS W/ FOLIC ACID TABLET (FP) PO SCH (09:41)
[2020-07-22] MEDS: ACETAMINOPHEN 325 MG TABLET (FP) PO PRN ×2 (13:27→18:19)
[2020-07-23] MEDS: ACETAMINOPHEN 325 MG TABLET (FP) PO PRN (04:53)
[2020-07-23] MEDS: IBUPROFEN 600 MG TABLET (FP) PO PRN (04:56)
[2020-07-23] MEDS: SIMETHICONE 80 MG TAB.CHEW (FP) PO PRN (04:59)
--- NOTE | 2020-07-23 08:34 | PN ---
Post Progress Note - Subjective Subjective: Patient reports burning pain bilaterally to incision Reports tolerating oral intake without nausea or vomiting. Ambulating without dizziness. Denies fevers or chills. Pain well controlled with oral pain medication. Attempted - is supplementing Passing flatus. Post Day: 3 Type of Delivery: Primary C/S Vital Signs: Vital Signs Temperature 98.7 F 07/22/20 22:00 Pulse Rate 96 H 07/22/20 22:00 Respiratory Rate 18 07/22/20 22:00 Blood Pressure 125/67 07/22/20 22:00 O2 Sat by Pulse Oximetry (%) 98 07/21/20 22:00 Breast Exam: Yes: Soft Uterus: Yes: Fundus Firm Incision: Yes: Sutures intact. No: Redness, Oozing Abdomen/GI: Yes: Abdomen soft, Abdominal Distention (obese), Tender, Passing flatus, Tolerating PO, Other (large blisters lateral to incisions bilaterally, area of tape ) Lochia: Yes: Rubra Lochia, amount: Small Extremities: Yes: Calves non-tender, Edema (trace) Activity: Ambulating - Labs Labs: CBC WBC 17.0 K/mm3 (4.0-10.0) H 07/21/20 06:55 RBC 3.72 M/mm3 (3.60-5.2) 07/21/20 06:55 Hgb 9.0 GM/dL (10.7-15.3) L 07/21/20 06:55 Hct 29.2 % (32.4-45.2) L D 07/21/20 06:55 MCV 78.5 fl (80-96) L 07/21/20 06:55 MCH 24.3 pg (25.7-33.7) L 07/21/20 06:55 MCHC 31.0 g/dl (32.0-36.0) L 07/21/20 06:55 RDW 15.2 % (11.6-15.6) 07/21/20 06:55 Plt Count 269 K/MM3 (134-434) 07/21/20 06:55 MPV 7.6 fl (7.5-11.1) 07/21/20 06:55 Absolute Neuts (auto) 12.5 K/mm3 (1.5-8.0) H 07/21/20 06:55 Neutrophils % 73.6 % (42.8-82.8) 07/21/20 06:55 Lymphocytes % 18.2 % (8-40) 07/21/20 06:55 Monocytes % 7.6 % (3.8-10.2) 07/21/20 06:55 Eosinophils % 0.4 % (0-4.5) 07/21/20 06:55 Basophils % 0.2 % (0-2.0) 07/21/20 06:55 Nucleated RBC % 0 % (0-0) 07/21/20 06:55 Assessment/Plan 29 yo POD # 3 s/p primary CD, afebrile, vital signs stable, stable for discharge home 1. Bilateral blisters, likely secondary to tape adhesive Applied tegaderm and petroleum jelly Discussed proper dressing changes Otherwise patient stable for discharge home today. 2. Patient encouraged to contact MD for: - Severe pain not controlled by oral pain medication - Fevers or chills - Nausea or vomiting, intolerance of oral intake - Incision redness, tenderness or discharge 3. Patient to follow up in office in 1-2 weeks for incision check, 4-6 weeks for visit
[2020-07-23 08:40] LABS: BASO % 0.5 % (0-2.0); EOS % 2.6 % (0-4.5); HEMOGLOBIN 8.6 GM/dL (10.7-15.3); LYMPH % 20.8 % (8-40); MCH 25.3 pg (25.7-33.7); MCHC 31.9 g/dl (32.0-36.0); MEAN CELL VOLUME 79.1 fl (80-96); MEAN PLT VOLUME 7.6 fl (7.5-11.1); MONO % 6.8 % (3.8-10.2); NEUT % 69.3 % (42.8-82.8); PLATELET COUNT 279 K/MM3 (134-434); RBC 3.41 M/mm3 (3.60-5.2); WHITE BLOOD COUNT 10.3 K/mm3 (4.0-10.0)
[2020-07-23] MEDS: PRENATAL VITAMINS W/ FOLIC ACID TABLET (FP) PO SCH (10:22)
[2020-07-23 10:28] VITALS: BP 129/51; PULSE 78; TEMP 98.1
--- NOTE | 2020-07-28 17:23 | PATH ---
Surgical Pathology Report Patient Name: HAMIDA SOLIS Med. Rec. #: [id number] /Age/Gender: 1990 (Age: 29) / F Account: [id number] Location: [facility] OBS/PULMONOLOGY PHYSICIAN Taken: 07/20/2020 Received: 07/21/2020 Reported: 07/28/2020 Physicians: Tonie Toure Specimen(s) Received PLACENTA Clinical History 29-year-old , history of spontaneous , history of multiple sclerosis Final Diagnosis PLACENTA: THIRD TRIMESTER PLACENTA WITH FOCAL INCREASED PERIVILLOUS FIBRIN DEPOSITION TRIVASCULAR CORD. MEMBRANES SHOWING FEW PIGMENT LADEN MACROPHAGES WITHIN THE AMNION AND CHORION, CONSISTENT WITH MECONIUM STAINING (MILD). Electronically Signed Shanice Manning M.D. Gross Description The specimen is received fresh labeled placenta and is a 499 gram, 18.0 x 16.0 x 2.8 cm. placenta with attached membranes and umbilical cord. The attached membranes are nava, translucent with focal opacities and insert marginally. The umbilical cord measures 22 cm. in length and averages 1 cm. in diameter. The cord inserts eccentrically, 1 cm. to the nearest margin. No true knots or strictures are identified. Cut surface of the umbilical cord reveals 3 vessels. The surface is cowart-blue with minimal fibrin deposition and appropriate caliber vessels. The maternal surface is red-brown with focal defects. Sectioning reveals red-brown, spongy parenchyma. No lesions are identified. [employer] sections are submitted in three cassettes as follows: 1- membrane rolls and umbilical cord; 2-3- full thickness sections of placenta. /07/25/[address] [facility]07/25/2020
== END 2020-07-23 13:05 | disposition home or self-care (01) | DRG 787 ==
LOC: JLDR 07:00 → J3W 07-20 22:15
PROVIDERS: ADMIT Obstetrics & Gynecology; ATTEND Obstetrics & Gynecology
PROC: 3E0P7VZ Introduction of Hormone into Female Reproductive, Via Natural or Artificial Opening (ICD-10-PCS; 2020-07-19)
PROC: 3E033VJ Introduction of Other Hormone into Peripheral Vein, Percutaneous Approach (ICD-10-PCS; 2020-07-19)
PROC: 10D00Z1 Extraction of Products of Conception, Low, Open Approach (ICD-10-PCS; principal; 2020-07-20)
DX: O82 Encounter for cesarean delivery without indication (principal); O99.354 Diseases of the nervous system complicating childbirth; G35 Multiple sclerosis; O48.0 Post-term pregnancy; O61.0 Failed medical induction of labor; O62.0 Primary inadequate contractions; O99.214 Obesity complicating childbirth; E66.01 Morbid (severe) obesity due to excess calories; M06.9 Rheumatoid arthritis, unspecified; Z3A.40 40 weeks gestation of pregnancy; Z37.0 Single live birth; Z86.14 Personal history of Methicillin resistant Staphylococcus aureus infection; Z88.0 Allergy status to penicillin; Z88.5 Allergy status to narcotic agent; Z90.721 Acquired absence of ovaries, unilateral
CPT/HCPCS: 36415; 80048; 83986-QW; 85025; 85610; 85730; 86780; 86850; 86900; 86901; 87081; 88307-TC; U0003

== ENCOUNTER 2021-01-17 19:17 | Emergency (ER) | payer OTHER ==
[2021-01-17 19:32] VITALS: BMI 43.7
[2021-01-17 20:33] LABS: BASO % 0.4 % (0-2.0); EOS % 3.9 % (0-4.5); HEMATOCRIT 42.1 % (32.4-45.2); HEMOGLOBIN 13.4 GM/dL (10.7-15.3); LYMPH % 35.4 % (8-40); MCHC 31.7 g/dl (32.0-36.0); MEAN CELL VOLUME 75.6 fl (80-96); MEAN PLT VOLUME 7.3 fl (7.5-11.1); MONO % 7.9 % (3.8-10.2); NEUT % 52.4 % (42.8-82.8); PLATELET COUNT 644 K/MM3 (134-434); RBC 5.57 M/mm3 (3.60-5.2); RDW 15.5 % (11.6-15.6); WHITE BLOOD COUNT 10.1 K/mm3 (4.0-10.0)
[2021-01-17] MEDS ORDERED: METOCLOPRAMIDE HCL INJECTION 10 MG/2 ML VIAL IVPUSH ONE (20:37)
[2021-01-17] MEDS ORDERED: KETOROLAC TROMETHAMINE 30 MG/1 ML VIAL IVPUSH ONE (20:37)
[2021-01-17] MEDS ORDERED: METOCLOPRAMIDE HCL INJECTION 10 MG/2 ML VIAL ONE (20:49)
[2021-01-17] MEDS ORDERED: KETOROLAC TROMETHAMINE 30 MG/1 ML VIAL ONE (20:49)
[2021-01-17 21:11] LABS: INR 1.05 (0.83-1.09); PROTHROMBIN TIME (PATIENT) 12.9 SEC (9.7-13.0)
[2021-01-17 21:21] LABS: CHLORIDE 104 mmol/L (98-107); POTASSIUM 5.4 mmol/L (3.5-5.1); SODIUM 140 mmol/L (136-145)
[2021-01-17 21:24] LABS: ANION GAP 9 MMOL/L (8-16); BLOOD UREA NITROGEN 8.7 mg/dL (7-18); CALCIUM 9.9 mg/dL (8.5-10.1); CO2 26 mmol/L (21-32); GLUCOSE,RANDOM 86 mg/dL (74-106)
[2021-01-17 21:27] LABS: CREATININE 0.8 mg/dL (0.55-1.3)
[2021-01-17 22:56] VITALS: BP 130/86; PULSE 86; TEMP 98.1
== END 2021-01-17 23:27 | disposition home or self-care (01) ==
LOC: JER 19:17
PROC: 3E0333Z Introduction of Anti-inflammatory into Peripheral Vein, Percutaneous Approach (ICD-10-PCS; principal; 2021-01-17)
PROC: 3E033GC Introduction of Other Therapeutic Substance into Peripheral Vein, Percutaneous Approach (ICD-10-PCS; 2021-01-17)
DX: R07.9 Chest pain, unspecified (principal); R06.02 Shortness of breath
CPT/HCPCS: 36415; 71275-TC; 80048; 82550; 82553; 84484; 84703; 85025; 85610; 93005; 93010; 99285-25; Q9967

== ENCOUNTER 2022-05-28 06:10 | Inpatient (IN) | payer OTHER ==
[2022-05-28] MEDS ORDERED: CITRIC ACID/SODIUM CITRATE 30 ML UNIT-DOSE CUP PO ONE (06:30)
[2022-05-28] MEDS ORDERED: ELECTROLYTE-148 SOLN 500 ML IV ONE (06:30)
[2022-05-28 06:46] VITALS: BMI 42.7
[2022-05-28] MEDS ORDERED: ELECTROLYTE-148 SOLN 1,000 ML IV SCH ×2 (07:00→10:00)
[2022-05-28] MEDS ORDERED: ceFAZolin SODIUM 1 GM VIAL ONE ×2 (09:52→19:22)
[2022-05-28] MEDS ORDERED: ENOXAPARIN NA (PORCINE) 40 MG/0.4 ML DISP.SYRIN SQ SCH (10:00)
[2022-05-28] MEDS ORDERED: morphine SULFATE/PF 1 MG/2 ML (2cc Syringe - QUVA) ONE (13:49)
[2022-05-28] MEDS ORDERED: BETAMET ACET/BETAMET NA PH 30 MG/5 ML VIAL ONE (14:19)
[2022-05-28] MEDS ORDERED: ONDANSETRON 4 MG/2 ML VIAL ONE (14:19)
[2022-05-28] MEDS ORDERED: OXYTOCIN 10 UNITS/ML VIAL ONE (14:37)
[2022-05-28] MEDS ORDERED: KETOROLAC TROMETHAMINE 30 MG/1 ML VIAL ONE (14:37)
[2022-05-28] MEDS ORDERED: OXYTOCIN 20 UNITS in 0.9% NS 20 UNIT/1,000 ML INFUS.BAG IV ONE (15:15)
[2022-05-28] MEDS ORDERED: ONDANSETRON 4 MG/2 ML VIAL IVPUSH PRN (16:01)
[2022-05-28] MEDS ORDERED: ACETAMINOPHEN 325 MG TABLET (FP) PO PRN ×2 (16:01→17:18)
[2022-05-28] MEDS ORDERED: IBUPROFEN 600 MG TABLET (FP) PO PRN ×2 (16:01→17:18)
[2022-05-28] MEDS ORDERED: morphine SULFATE/PF 1 MG/2 ML (2cc Syringe - QUVA) EP ONE (16:01)
[2022-05-28 17:01] LABS: CORD BASE EXCESS -4.8 mmol/L (0-2); CORD HCO3 22.2 mmHg (20-29); CORD PCO2 47.8 mmHg (30-78); CORD pH 7.284 (7.14-7.44)
[2022-05-28 17:02] LABS: CORD pH 7.111 (7.14-7.44)
[2022-05-28] MEDS ORDERED: SENNOSIDES/DOCUSATE COMBO (SENNA PLUS) TABLET (UD) PO PRN (17:18)
[2022-05-28] MEDS ORDERED: IBUPROFEN 800 MG/8 ML IJ IVPB PRN (17:18)
[2022-05-28] MEDS ORDERED: METHYLERGONOVINE MALEATE 0.2 MG/1 ML AMP IM PRN (17:18)
[2022-05-28] MEDS ORDERED: OXYTOCIN 20 UNITS in 0.9% NS 20 UNIT/1,000 ML INFUS.BAG IV SCH (17:30)
[2022-05-28] MEDS ORDERED: CEFAZOLIN 1 GM/D5W 1 GM/50 ML BAG IVPB SCH (18:00)
[2022-05-28] MEDS ORDERED: DEXTROSE 5%-WATER - 50 ML IVPB ONE (19:21)
[2022-05-28] MEDS: CEFAZOLIN 1 GM in DEXTROSE 5%-WATER - 1 GM/50 ML IVPB IVPB SCH (19:31)
[2022-05-29] MEDS ORDERED: ceFAZolin SODIUM 1 GM VIAL ONE ×2 (01:53→10:12)
[2022-05-29] MEDS ORDERED: DEXTROSE 5%-WATER - 50 ML IVPB ONE ×2 (01:53→10:12)
[2022-05-29] MEDS: CEFAZOLIN 1 GM in DEXTROSE 5%-WATER - 1 GM/50 ML IVPB IVPB SCH ×2 (02:15→10:21)
[2022-05-29] MEDS: SIMETHICONE 80 MG TAB.CHEW (FP) PO PRN ×3 (02:16→16:31)
[2022-05-29] MEDS ORDERED: oxyCODONE HCL 5 MG TABLET PO PRN ×2 (05:18)
[2022-05-29 09:01] LABS: HEMATOCRIT 29.6 % (32.4-45.2); HEMOGLOBIN 9.5 GM/dL (10.7-15.3); MCH 24.2 pg (25.7-33.7); MEAN CELL VOLUME 75.6 fl (80-96); MEAN PLT VOLUME 7.5 fl (7.5-11.1); PLATELET COUNT 384 10^3/uL (134-434); RBC 3.91 M/mm3 (3.60-5.2); RDW 14.7 % (11.6-15.6); WHITE BLOOD COUNT 20.1 K/mm3 (4.0-10.0)
[2022-05-29] MEDS: PRENATAL VITAMINS W/ FOLIC ACID TABLET (FP) PO SCH (10:22)
[2022-05-29] MEDS: ENOXAPARIN NA (PORCINE) 40 MG/0.4 ML DISP.SYRIN SQ SCH (10:23)
[2022-05-29 10:39] LABS: ANISOCYTOSIS 0; HELMET CELLS 0; HOWELL-JOLLY BODIES 0; MACROCYTOSIS 0; OVALOCYTE 0; ROULEAU 0; SICKELED CELLS 0; TARGET CELLS 0; TEAR DROP CELLS 0; TOXIC GRANULATION 0
[2022-05-29] MEDS ORDERED: BISACODYL 10 MG SUPP.RECT RC PRN (17:18)
[2022-05-30] MEDS: SIMETHICONE 80 MG TAB.CHEW (FP) PO PRN ×4 (06:53→23:17)
[2022-05-30 07:06] LABS: BASO % 0.3 % (0-2.0); HEMATOCRIT 29.5 % (32.4-45.2); HEMOGLOBIN 9.5 GM/dL (10.7-15.3); LYMPH % 28.4 % (8-40); MCH 24.4 pg (25.7-33.7); MCHC 32.1 g/dl (32.0-36.0); MEAN CELL VOLUME 75.8 fl (80-96); MEAN PLT VOLUME 7.5 fl (7.5-11.1); MONO % 7.7 % (3.8-10.2); NEUT % 62.6 % (42.8-82.8); PLATELET COUNT 417 10^3/uL (134-434); WHITE BLOOD COUNT 14.1 K/mm3 (4.0-10.0)
[2022-05-30] MEDS: PRENATAL VITAMINS W/ FOLIC ACID TABLET (FP) PO SCH (09:44)
[2022-05-30] MEDS: ENOXAPARIN NA (PORCINE) 40 MG/0.4 ML DISP.SYRIN SQ SCH (09:44)
[2022-05-30] MEDS: ACETAMINOPHEN 325 MG TABLET (FP) PO PRN (11:41)
[2022-05-30] MEDS: IBUPROFEN 600 MG TABLET (FP) PO SCH ×2 (12:25→18:23)
[2022-05-30 22:13] VITALS: RESP 18
[2022-05-31] MEDS: IBUPROFEN 600 MG TABLET (FP) PO SCH ×3 (00:55→12:34)
[2022-05-31] MEDS: ACETAMINOPHEN 325 MG TABLET (FP) PO PRN ×2 (07:19→14:58)
[2022-05-31 07:24] LABS: BASO % 0.3 % (0-2.0); HEMATOCRIT 29.6 % (32.4-45.2); HEMOGLOBIN 9.4 GM/dL (10.7-15.3); LYMPH % 37.3 % (8-40); MCH 24.1 pg (25.7-33.7); MCHC 31.8 g/dl (32.0-36.0); MEAN CELL VOLUME 75.8 fl (80-96); MEAN PLT VOLUME 6.8 fl (7.5-11.1); MONO % 6.4 % (3.8-10.2); PLATELET COUNT 428 10^3/uL (134-434); RBC 3.91 M/mm3 (3.60-5.2); RDW 15.1 % (11.6-15.6); WHITE BLOOD COUNT 12.2 K/mm3 (4.0-10.0)
[2022-05-31 09:05] VITALS: BP 113/74; PULSE 69; TEMP 98.3
[2022-05-31] MEDS: PRENATAL VITAMINS W/ FOLIC ACID TABLET (FP) PO SCH (09:44)
[2022-05-31] MEDS: ENOXAPARIN NA (PORCINE) 40 MG/0.4 ML DISP.SYRIN SQ SCH (09:44)
== END 2022-05-31 15:30 | disposition home or self-care (01) | DRG 787 ==
LOC: JLDR 06:10 → J3W 18:00
PROVIDERS: ADMIT Obstetrics & Gynecology; ATTEND Obstetrics & Gynecology
PROC: 10D00Z1 Extraction of Products of Conception, Low, Open Approach (ICD-10-PCS; principal; 2022-05-28)
DX: O34.211 Maternal care for low transverse scar from previous cesarean delivery (principal); O99.354 Diseases of the nervous system complicating childbirth; O99.214 Obesity complicating childbirth; E66.9 Obesity, unspecified; G35 Multiple sclerosis; O99.02 Anemia complicating childbirth; Z3A.39 39 weeks gestation of pregnancy; Z37.0 Single live birth
CPT/HCPCS: 36415; 36600; 82803; 85025; 88307-TC; C9803-CS; U0003; U0005